=== PATIENT | male | born 1945 | race Caucasian/White ===

== ENCOUNTER → 2018-05-12 09:54 | Outpatient (CLI) | payer MEDICARE, OTHER, SELFPAY ==
[2013-09-16 06:19] VITALS: BMI 25.9
[2018-05-12 11:28] LABS: PSA,Total - Annual Screen 0.31 ng/mL (0.00-4.00)
== END ==
PROVIDERS: Family Provider Family Medicine; PCP Family Medicine; Referring Provider Urology; Visit Provider Urology
DX: Z12.5 Encounter for screening for malignant neoplasm of prostate (principal)
CPT/HCPCS: 36415; 84153; G0103

== ENCOUNTER → 2021-10-18 | Outpatient (CLI) | payer MEDICARE, OTHER, SELFPAY ==
[2021-10-18 12:55] LABS: PSA,Total - Annual Screen 0.38 ng/mL (0.00-4.00)
== END | disposition home or self-care (01) ==
LOC: LAB 11:57
PROVIDERS: PCP Family Medicine; Visit Provider Registered Nurse
DX: Z12.5 Encounter for screening for malignant neoplasm of prostate (principal)
CPT/HCPCS: 36415; 84153; G0103

== ENCOUNTER → 2021-11-30 | Outpatient (CLI) | payer MEDICARE, OTHER, SELFPAY ==
--- NOTE | 2021-11-30 13:53 | EKG12_ITS ---
Test Reason : PRE OP Blood Pressure : / mmHG Vent. Rate : 068 BPM Atrial Rate : 068 BPM P-R Int : 234 ms QRS Dur : 084 ms QT Int : 422 ms P-R-T Axes : 043 -29 067 degrees QTc Int : 448 ms Sinus rhythm with 1st degree A-V block with frequent and consecutive Premature ventricular complexes Abnormal ECG Confirmed by ISAAC BEDOYA, EDDA ([id number]), marketing editor MARIA EUGENIA MAYORGA ([id number]) on 12/04/2021 8:53:11 AM Referred By: Anup Triana Confirmed By:RHEA GRAY MD
[2021-11-30 14:34] LABS: Hematocrit 39.8 % (40-54); Hemoglobin 13.2 g/dL (13.0-16.5); Mean Corp Hgb Conc 33.2 g/dL (32-36); Mean Corpuscular Hgb 33.2 pg (27.0-32.0); Mean Platelet Vol. 9.3 fl (6.2-12.0); Platelet Count 131 K/mm3 (150-450); RBC Distribution Width CV 13.4 % (11.6-14.6); RBC Distribution Width SD 49.4 fl (35.1-43.9); Red Blood Count 3.98 M/mm3 (4.6-6.2); White Blood Count 3.3 K/mm3 (4.4-11.0)
[2021-11-30 15:10] LABS: Anion Gap 4 (5-15); BUN 18 mg/dL (7-18); BUN/Creat Ratio 18.6 RATIO (10-20); Calcium,Total 8.5 mg/dL (8.5-10.1); Chloride 110 mmol/L (98-107); Creatinine, Serum 0.97 mg/dL (0.70-1.30); EST Glomerular Filtration Rate 80 mL/min (>60); Est Glom Filt Rate - Afr Amer 96 mL/min (>60); Glucose 114 mg/dL (74-106); Potassium 4.9 mmol/L (3.5-5.1); Sodium Level 141 mmol/L (136-145); Thyroid Stim Hormone (TSH) 0.49 uIU/mL (0.358-3.74)
== END | disposition home or self-care (01) ==
LOC: PAT 12-27 09:27
PROVIDERS: Anesthesiology; PCP Family Medicine; Referring Provider Urology; Visit Provider Urology
DX: Z01.818 Encounter for other preprocedural examination (principal); Z01.810 Encounter for preprocedural cardiovascular examination; R94.31 Abnormal electrocardiogram [ECG] [EKG]; R94.39 Abnormal result of other cardiovascular function study
CPT/HCPCS: 36415; 80048; 84443; 85027; 93005

== ENCOUNTER → 2021-12-10 | Outpatient (CLI) | payer MEDICARE, OTHER, SELFPAY ==
[2021-12-10 11:41] LABS: Magnesium 2.3 mg/dL (1.6-2.6)
== END | disposition home or self-care (01) ==
LOC: LAB 10:43
PROVIDERS: PCP Family Medicine; Referring Provider Internal Medicine Cardiovascular Disease; Visit Provider Internal Medicine Cardiovascular Disease
DX: I49.9 Cardiac arrhythmia, unspecified (principal)
CPT/HCPCS: 36415; 83735

== ENCOUNTER → 2021-12-20 | Outpatient (CLI) | payer MEDICARE, OTHER, SELFPAY ==
--- NOTE | 2021-12-20 07:00 | ECHOD_ITS ---
Reason For Study: Murmur Procedure This was a 2D Doppler, Color Flow transthoracic echocardiogram. Exam performed in department. Left Ventricle Normal size and thickness. The estimated ejection fraction is 50-55 %. Diastolic function is indeterminate. Right Ventricle Normal right ventricle. Atria The left atrium is severely enlarged. Normal right atrium. Mitral Valve Moderate (2+) mitral valve insufficiency. Tricuspid Valve Mild tricuspid valve insufficiency. Aortic Valve Trisinus/trileaflet aortic valve. Mild-Moderate (1-2+) aortic valve insufficiency. Pulmonic Valve Mild (1+) pulmonic valve insufficiency. Great Vessels Mildly dilated aortic root. Pericardium/Pleural No pericardial effusion. MMode/2D Measurements & Calculations LVIDd: 5.2 cm IVSd: 1.1 cm Ao root diam: 4.1 cm LVIDs: 3.6 cm LVPWd: 0.94 cm LA dimension: 4.6 cm FS: 31.1 % LAV(MOD-bp): 74.6 ml LA A4 area: 24.3 cm2 RA A4 area: 24.2 cm2 LAV(MOD-bp) Indexed: 36.2 ml/m2 LAV(MOD-sp2): 57.4 ml LAV(MOD-sp4): 70.5 ml Time Measurements MV dec time: 0.30 sec Doppler Measurements & Calculations MV E max brian: 52.2 cm/sec Lat Peak E' Brian: 7.3 cm/sec Med Peak E' Brian: 4.4 cm/sec MV A max brian: 87.8 cm/sec E/E' lat: 7.1 E/E' med: 11.8 MV E/A: 0.59 MV V2 max: 100.0 cm/sec MV P1/2t max brian: 63.3 cm/sec Ao V2 max: 126.4 cm/sec MV max P.0 mmHg MV P1/2t: 110.8 msec Ao max P.5 mmHg MV V2 mean: 49.0 cm/sec MV dec slope: 167.2 cm/sec2 Ao V2 mean: 85.6 cm/sec MV mean P.1 mmHg MVA(P1/2t): 2.0 cm2 Ao mean P.4 mmHg MV V2 VTI: 29.5 cm Ao V2 VTI: 32.5 cm AI max brian: 452.4 cm/sec LV V1 max: 108.1 cm/sec PA V2 max: 80.3 cm/sec AI max P.0 mmHg LV V1 max P.8 mmHg LV V1 mean P.4 mmHg AI dec slope: 153.9 cm/sec2 LV V1 mean: 71.0 cm/sec AI P1/2t: 861.1 msec LV V1 VTI: 29.0 cm TR max brian: 232.9 cm/sec TR max P.8 mmHg ECHO/Echo Complete Interpretation Summary The estimated ejection fraction is 50-55 %. Diastolic function is indeterminate. Moderate (2+) mitral valve insufficiency. Mild tricuspid valve insufficiency. Mild-Moderate (1-2+) aortic valve insufficiency. The left atrium is severely enlarged. Ordering Physician: Pacheco Quiros Referring Physician: Gama Martinez Performed By: Carlos Tobin RCS
--- NOTE | 2021-12-20 13:30 | STRESSREP ---
Stress Test Report Date: [12/20/2021] Procedure: Exercise tolerance test/imaging study Indications: Abnormal EKG Consent: Per the patient Procedure: The patient exercised on a Adi protocol for 9:00 minutes completing stage 3, achieving a peak heart rate of 141 bpm (98% predicted maximal heart rate) with a peak blood pressure 158/70 mmHg and a peak MET capacity of 10.4 METs. The baseline ECG demonstrated Sinus bradycardia with first-degree AV block. The peak exercise ECG demonstrated Sinus tachycardia. PVCs were noted during exercise.. The functional capacity was considered Good. There was No complaints of chest discomfort during exercise or recovery. The examination was discontinued secondary to Target heart rate being achieved. Impression: 1. Technically adequate (percent predicted maximal heart rate greater than 85%) exercise tolerance test 2. Peak exercise ECG No ischemic changes 3. PVCs noted during exercise. 4. Nuclear images pending Myocardial perfusion imaging study: Technique: The patient was injected with 11.8 mCi of technetium 99m Cardiolite and subsequently rest SPECT Cardiolite nuclear imaging was obtained in the horizontal long, vertical long, and short axis views. The patient exercised on a Adi protocol for 9 minutes completing The patient was injected with 34.1 mCi of technetium 99m Cardiolite and subsequently stress SPECT Cardiolite nuclear imaging was obtained in the horizontal long, vertical long, and short axis views. A gated Cardiolite study at peak stress was obtained. Interpretation: Comparison of rest and stress SPECT images show diaphragmatic attenuation at rest. With correction of the attenuation,No resting defect is noted. However on stress imaging,Mildly decreased perfusion of the inferior wall is noted.Gated images showed ejection fraction of 54% Impression: 1. Gated images showed ejection fraction of 54%. 2. Stress images suggestive of mild inferior wall ischemia.. This note was generated with [employer]ation software. It may contain incorrect words, spelling, and punctuation that were not noted in checking the note before signing.
== END | disposition home or self-care (01) ==
PROVIDERS: PCP Family Medicine; Referring Provider Internal Medicine Cardiovascular Disease; Visit Provider Internal Medicine Cardiovascular Disease
DX: R94.31 Abnormal electrocardiogram [ECG] [EKG] (principal); I49.9 Cardiac arrhythmia, unspecified
CPT/HCPCS: 78452; 93017; 93225; 93226; 93306; A9500; A4216

== ENCOUNTER 2021-12-25 15:40 | Outpatient (CLI) | payer MEDICARE, OTHER, SELFPAY ==
--- NOTE | 2021-12-25 15:59 | RAD_ITS ---
EXAM: XR CHEST, 2 VIEWS CLINICAL INDICATION: for heart cath TECHNIQUE: Frontal and lateral views of the chest. This report was created using [employer] report generation technology. COMPARISON: None. FINDINGS: LUNGS AND PLEURAL SPACES: Unremarkable. No consolidation or edema. No pneumothorax. No effusion. HEART: Unremarkable. Cardiac silhouette not enlarged. MEDIASTINUM: Central airways and mediastinal contour are unremarkable. BONES/JOINTS: Degenerative changes of the acromioclavicular joints and spine. Old healed left seventh rib fracture. Mild S-shaped curvature of the spine. Degenerative changes of the spine. Diffuse osteopenia. SOFT TISSUES: Unremarkable. VASCULATURE: Mildly tortuous thoracic aorta. RAD/Chest PA and Lateral IMPRESSION: No acute disease. Electronically Signed: Art Guido MD at 3:50 EDT ,
[2021-12-25 16:02] LABS: Hematocrit 39.8 % (40-54); Hemoglobin 13.4 g/dL (13.0-16.5); Mean Corp Hgb Conc 33.7 g/dL (32-36); Mean Corpuscular Hgb 33.3 pg (27.0-32.0); Mean Corpuscular Volume 98.8 fL (80-94); Mean Platelet Vol. 9.5 fl (6.2-12.0); Platelet Count 120 K/mm3 (150-450); RBC Distribution Width CV 13.5 % (11.6-14.6); RBC Distribution Width SD 49.7 fl (35.1-43.9); Red Blood Count 4.03 M/mm3 (4.6-6.2); White Blood Count 3.8 K/mm3 (4.4-11.0)
[2021-12-25 16:07] LABS: International Normalized Ratio 1.1; Prothrombin Time (Protime)PT. 13.4 SECONDS (11.7-14.9)
[2021-12-25 16:08] LABS: Partial Thromboplast Time 28.6 Seconds (24.1-36.2)
[2021-12-25 16:25] LABS: Anion Gap 4 (5-15); BUN 17 mg/dL (7-18); BUN/Creat Ratio 13.9 RATIO (10-20); Calcium,Total 9.1 mg/dL (8.5-10.1); Chloride 109 mmol/L (98-107); Creatinine, Serum 1.22 mg/dL (0.70-1.30); EST Glomerular Filtration Rate 61 mL/min (>60); Est Glom Filt Rate - Afr Amer 74 mL/min (>60); Glucose 93 mg/dL (74-106); Sodium Level 142 mmol/L (136-145)
== END 2021-12-25 23:59 | disposition home or self-care (01) ==
LOC: LAB 15:41
PROVIDERS: PCP Family Medicine; Referring Provider Internal Medicine Cardiovascular Disease; Visit Provider Internal Medicine Cardiovascular Disease
DX: Z01.810 Encounter for preprocedural cardiovascular examination (principal); R94.31 Abnormal electrocardiogram [ECG] [EKG]; R94.39 Abnormal result of other cardiovascular function study
CPT/HCPCS: 36415; 71046; 80048; 85027; 85610; 85730

== ENCOUNTER 2021-12-31 09:56 | Day surgery (SDC) | payer MEDICARE, OTHER, SELFPAY ==
[2021-12-28 10:18] VITALS: BMI 24.9
--- NOTE | 2021-12-31 11:52 | CL.D_ITS ---
Patient Name: IRMA ANDRE I Study Date: 12/31/2021 Performing: Pacheco Quiros MD Ht: 73 inches 185.42 cm : 1945 Wt: 189 lbs 85.73 kg Age: 76 Gender: male BSA: 2.1 PROCEDURE(S) PERFORMED [id number])LHC/COR CLINICAL PROFILE AND INDICATIONS Indications: Cardiac Arrythmia Heart Failure: None Stress/Imaging Stress Test w/SPECT MPI: Yes Result: Positive Intermediate RiskStress Test with SPECT MPI: Positive Intermediate Risk CONCLUSIONS Minimal luminal irregularities RECOMMENDATIONS Risk factor modification DESCRIPTION OF PROCEDURE The patient arrived to the procedure lab. The risks and benefits of the procedure as well as a full description of our services here and current unavailability of surgical backup were fully explained to the patient and/or their significant other prior to the catheterization. The Timeout was completed, verifying the correct patient and procedure. The patient's procedural site was prepped and draped in the usual fashion. Local anesthetic was given subcutaneously to right groin region with Lidocaine 2%. Using a modified Seldinger technique, arterial access was obtained via the right femoral artery, a 5Fr sheath was inserted. LV to AO pullback pressures were then recorded. Left Coronary Artery selective angiography was performed in multiple views using a 6 Fr. JL 5 catheter. Right Coronary Artery selective angiography was then performed in multiple views using a 6 Fr. 3DRC (Mauro) catheter.Contrast was injected through the sheath and the Right Iliac and Femoral artery were assessed for possible closure device.The arterial sheath was pulled and a Perclose closure device was deployed for hemostasis CORONARY ANGIOGRAPHY DOMINANCE: Right Dominant LEFT HEART ASSESSMENT LVEDP: 1 mmHg LEFT ANTERIOR DESCENDING ARTERY: LAD: Luminal Irregularities 10% Proximal lesion in LAD RIGHT CORONARY ARTERY: RCA: Luminal Irregularities 10% Mid lesion in RCA COMPLICATIONS No Complications PROCEDURE MEDICATIONS Versed 2 mg IV Fentanyl 50 mcg IV Oxygen: 2 L/min via nasal cannula SUMMARY OF HEMODYNAMIC DATA Time AIR REST ECG 10:29:48 AO 150/59 (94) SA 11:15:20 LV 146/-2, 5 11:16:40 LV 134/-3, 4 11:16:49 LVp 146/-9, 5 11:17:07 AOp 147/63 (84) 11:17:14 Signed By Pacheco Quiros MD On 12/31/2021 11:52:11 Pacheco Quiros MD
== END 2021-12-31 15:00 | disposition home or self-care (01) ==
LOC: CLSP 09:59
PROVIDERS: PCP Family Medicine; Visit Provider Internal Medicine Cardiovascular Disease
DX: I25.9 Chronic ischemic heart disease, unspecified (principal); I44.0 Atrioventricular block, first degree; I49.9 Cardiac arrhythmia, unspecified; R94.31 Abnormal electrocardiogram [ECG] [EKG]; E03.9 Hypothyroidism, unspecified; N40.0 Benign prostatic hyperplasia without lower urinary tract symptoms; G47.00 Insomnia, unspecified; M81.0 Age-related osteoporosis without current pathological fracture; E78.2 Mixed hyperlipidemia; K21.9 Gastro-esophageal reflux disease without esophagitis; Z79.899 Other long term (current) drug therapy
CPT/HCPCS: 93454; 99152; 99153; J7040; Q9967; C1769; C1894

== ENCOUNTER → 2022-12-19 | Outpatient (CLI) | payer MEDICARE, OTHER, SELFPAY ==
[2022-12-19 12:48] LABS: PSA,Total - Annual Screen 0.58 ng/mL (0.00-4.00)
== END | disposition home or self-care (01) ==
LOC: LAB 11:48
PROVIDERS: PCP Family Medicine; Referring Provider Urology; Visit Provider Urology
DX: Z12.5 Encounter for screening for malignant neoplasm of prostate (principal)
CPT/HCPCS: 36415; 84153; G0103

== ENCOUNTER → 2023-10-28 | Outpatient (CLI) | payer MEDICARE, OTHER, SELFPAY ==
[2023-10-28 11:18] LABS: PSA,Total - Annual Screen 0.34 ng/mL (0.00-4.00)
== END | disposition home or self-care (01) ==
LOC: LAB 10:25
PROVIDERS: PCP Family Medicine; Referring Provider Urology; Visit Provider Urology
DX: Z12.5 Encounter for screening for malignant neoplasm of prostate (principal)
CPT/HCPCS: 36415; 84153; G0103

== ENCOUNTER → 2024-11-01 | Outpatient (CLI) | payer MEDICARE, OTHER, SELFPAY ==
[2024-11-01 11:30] LABS: PSA,Total- Diagnostic 0.32 ng/mL (0.00-4.00)
== END | disposition home or self-care (01) ==
LOC: LAB 10:12
PROVIDERS: PCP Family Medicine; Referring Provider Urology; Visit Provider Urology
DX: N40.1 Benign prostatic hyperplasia with lower urinary tract symptoms (principal)
CPT/HCPCS: 36415; 84153